=== PATIENT | male | born 1975 | race Caucasian/White ===

== ENCOUNTER 2022-07-07 07:48 | Day surgery (SDC) | payer OTHER ==
[~2022-07-07 07:48] MED LIST: Lidocaine 1%/Sod Bicarbonate in NS 8.4% 1 ML Syringe IDERM PRN; Sodium Chloride 0.9% 10 ML Syringe FLUSH PRN; Sodium Chloride 0.9% 10 ML Syringe FLUSH SCH
[2022-07-07] MEDS: Lactated Ringers 1,000 ML IV SCH (08:10)
[2022-07-07] MEDS ORDERED: Propofol 200 MG/20 ML SDV ONE (08:15)
[2022-07-07] MEDS ORDERED: fentaNYL 100 MCG/2 ML SDV ONE (08:15)
[2022-07-07] MEDS ORDERED: Bupivacaine 0.5% 30 ML SDV ONE (09:35)
[2022-07-07] MEDS ORDERED: Midazolam 1 MG/ML 2 ML SDV ONE (09:44)
== END 2022-07-07 11:39 | disposition home or self-care (01) ==
LOC: JD.SDS 07:48
PROVIDERS: ATTEND Surgery
DX: D12.3 Benign neoplasm of transverse colon (principal); K62.5 Hemorrhage of anus and rectum; K64.9 Unspecified hemorrhoids; E66.9 Obesity, unspecified; Z68.42 Body mass index [BMI] 45.0-49.9, adult; Z90.09 Acquired absence of other part of head and neck; Z88.1 Allergy status to other antibiotic agents; Z88.2 Allergy status to sulfonamides; Z88.8 Allergy status to other drugs, medicaments and biological substances; Z87.891 Personal history of nicotine dependence; Z79.899 Other long term (current) drug therapy
CPT/HCPCS: 45380; J2250; J2704; J3010; J7120; J3490